=== PATIENT | female | born 1950 | race Caucasian/White ===

== ENCOUNTER 2022-01-19 10:46 | Outpatient (CLI) | payer MEDICARE, SELFPAY ==
[2022-01-19 11:00] VITALS: PULSE 87; O2SAT 90
[2022-01-19 11:02] VITALS: PULSE 96; O2SAT 85
[2022-01-19 11:04] VITALS: PULSE 107; O2SAT 83
[2022-01-19 11:06] VITALS: PULSE 104; O2SAT 84
[2022-01-19 11:08] VITALS: PULSE 107; O2SAT 85
[2022-01-19 11:10] VITALS: PULSE 94; O2SAT 90
--- NOTE | 2022-01-19 11:23 | HOMEO2EVAL ---
Evaluation was performed at [facility] Home Oxygen Evaluation RC: Home Oxygen (O2) Evaluation Start: 01/19/22 11:19 Freq: Status: Active Protocol: RPE Activity Type Activity Date Activity User E-sign Co-sign Detail Recorded Client Recorded Date Recorded By Document 01/19/22 11:00 [email or web address] [email or web address] 01/19/22 11:23 KRM Document 01/19/22 11:02 [email or web address] [email or web address] 01/19/22 11:23 KRM Document 01/19/22 11:04 [email or web address] [email or web address] 01/19/22 11:23 KRM Document 01/19/22 11:06 [email or web address] [email or web address] 01/19/22 11:23 KRM Document 01/19/22 11:08 [email or web address] [email or web address] 01/19/22 11:23 KRM Document 01/19/22 11:10 [email or web address] [email or web address] 01/19/22 11:23 KRM 01/19/22 01/19/22 01/19/22 11:00 11:02 11:04 Home O2 Evaluation Test Phase Resting Exercise Exercise Oxygen Delivery Room Air Room Air Nasal Cannula Oxygen Flow Rate (L/min) 1 Pulse Oximetry (90-100 %) 90 85 L 83 L Pulse Rate (60-100 beats/min) 87 96 107 H Activity Tolerance Fair Fair Ambulation Distance (feet) 200 Ambulation Distance (meters) 60.95 Home Oxygen Evaluation Comments Treatment Charges 01/19/22 01/19/22 01/19/22 11:06 11:08 11:10 Home O2 Evaluation Test Phase Exercise Exercise Exercise Oxygen Delivery Nasal Cannula Nasal Cannula Nasal Cannula Oxygen Flow Rate (L/min) 2 3 4 Pulse Oximetry (90-100 %) 84 L 85 L 90 Pulse Rate (60-100 beats/min) 104 H 107 H 94 Activity Tolerance Fair Fair Fair Ambulation Distance (feet) Ambulation Distance (meters) Home Oxygen Evaluation Comments 4LPM WITH ACTIVITY. Treatment Charges O2 Evaluation - Outpatient
== END 2022-01-19 10:47 | disposition home or self-care (01) ==
LOC: ANHPFT 10:47
PROVIDERS: PCP Nurse Practitioner Adult Health; Visit Provider Nurse Practitioner Adult Health
DX: J44.9 Chronic obstructive pulmonary disease, unspecified (principal)
CPT/HCPCS: 94618